=== PATIENT | female | born 1960 | race Caucasian/White ===

== ENCOUNTER → 2021-02-07 | Outpatient (CLI) | payer OTHER ==
[~2021-02-07] MED LIST: ANTIVERT 25MG T25 MG PO; ASPIRIN EC81 MG PO; AUGMENTIN 875-1 EACH PO; BASAGLAR SQ; CEFUROXIME500 MG PO; GUAIFENESIN-CODE5 ML PO; HUMALOG100 UNIT/1 SQ; IBUPROFEN600 MG PO; LANTUS INS100 UTS/M1 SQ; LISINOPRIL20 MG PO; LODINE CAP 300300 MG PO; NORFLEX 100 MG100 MG PO; OMEPRAZOLE40 MG PO; OMNICEF 300 MG300 MG PO; PHENERGAN 25 MG25 M1 PO; PRAVACHOL40 MG PO; PREDNISONE10 MG PO; ZOFRAN ODT 4 MG4 MG PO; ZOFRAN4 MG PO
[2021-02-07 09:16] LABS: HEMOGLOBIN 13.4 gm/dl (12.3-15.3); RED BLOOD COUNT 4.59 M/UL (4.00-5.10); WHITE BLOOD COUNT 11.8 K/UL (4.5-11.0)
[2021-02-07 10:23] LABS: BUN/CREATININE RATIO 41 (0-10)
[2021-02-08 08:15] LABS: TESTOSTERONE, SERUM 4 ng/dL (4-50); VITAMIN D, 25-HYDROXY 14.5 ng/mL (30.0-100.0)
[2021-02-08 11:15] LABS: ESTRADIOL 13.4 pg/mL (.); PROGESTERONE 0.1 ng/mL (.); THYROXINE (T4) 7.6 ug/dL (4.5-12.0)
== END ==
LOC: LAB 08:26
PROVIDERS: Nurse Practitioner Family
DX: M54.9 Dorsalgia, unspecified (principal); M79.2 Neuralgia and neuritis, unspecified; F41.9 Anxiety disorder, unspecified; F32.9 Major depressive disorder, single episode, unspecified; E78.5 Hyperlipidemia, unspecified; Z79.899 Other long term (current) drug therapy; M47.816 Spondylosis without myelopathy or radiculopathy, lumbar region; M47.814 Spondylosis without myelopathy or radiculopathy, thoracic region
CPT/HCPCS: 36415; 72070; 72100; 80053; 80061; 82150; 82607; 82670; 82746; 83036; 83690; 84144; 84403; 84436; 84443; 84480; 85027

== ENCOUNTER 2021-03-22 16:13 | Emergency (ER) | payer OTHER ==
[~2021-03-22 16:13] MED LIST changes: -OMNICEF 300 MG300 MG PO; -ZOFRAN4 MG PO
[2021-03-22 17:32] LABS: HEMOGLOBIN 14.9 gm/dl (12.3-15.3); RED BLOOD COUNT 4.96 M/UL (4.00-5.10)
[2021-03-22 17:55] LABS: BUN/CREATININE RATIO 32 (0-10)
[2021-03-22] MEDS ORDERED: ZOFRAN4 MG PO (20:38)
[2021-03-22] MEDS ORDERED: OMNICEF 300 MG300 MG PO (20:38)
== END 2021-03-22 21:40 | disposition home or self-care (01) ==
LOC: ER1 16:13
PROVIDERS: Emergency Medicine
DX: N39.0 Urinary tract infection, site not specified (principal); R06.00 Dyspnea, unspecified; E11.9 Type 2 diabetes mellitus without complications; I10 Essential (primary) hypertension; E78.5 Hyperlipidemia, unspecified; K21.9 Gastro-esophageal reflux disease without esophagitis; Z90.49 Acquired absence of other specified parts of digestive tract
CPT/HCPCS: 36415; 71045; 80053; 81001; 82550; 82553; 82962; 83605; 83690; 83874; 84484; 85025; 85379; 87086; 93005; 96374; 99284; J0696; J7030; Q9967

== ENCOUNTER → 2021-04-13 | Outpatient (CLI) | payer OTHER ==
[~2021-04-13] MED LIST changes: +OMNICEF 300 MG300 MG PO; +ZOFRAN4 MG PO
== END ==
LOC: HEART 5 10:21
DX: R07.9 Chest pain, unspecified (principal); I25.10 Atherosclerotic heart disease of native coronary artery without angina pectoris; I10 Essential (primary) hypertension; I11.9 Hypertensive heart disease without heart failure; I08.1 Rheumatic disorders of both mitral and tricuspid valves; I27.20 Pulmonary hypertension, unspecified
CPT/HCPCS: 93306